=== PATIENT | female | born 1935 | race Caucasian/White ===

== ENCOUNTER 2017-10-19 14:33 | Outpatient (CLI) | payer OTHER | END 2017-10-19 15:00 | disposition home or self-care (01) | LOC: MAMO-SONO 14:33 | DX: Z12.31 Encounter for screening mammogram for malignant neoplasm of breast (principal); Z87.898 Personal history of other specified conditions ==

== ENCOUNTER → 2018-06-15 | Outpatient (CLI) | payer OTHER | END | disposition home or self-care (01) | LOC: MAMO-SONO 11:55 | DX: N64.4 Mastodynia (principal) ==

== ENCOUNTER 2022-05-12 14:35 | Emergency (ER) | payer OTHER ==
[~2022-05-12] VITALS: Ht 152.4 cm; Wt 61.2 kg
[2022-05-12] MEDS ORDERED: ATORVASTATIN CA40 MG PO (14:53)
[2022-05-12] MEDS ORDERED: NORVASC5 MG PO (14:54)
[2022-05-12] MEDS ORDERED: AVAPRO75 MG PO (14:54)
[2022-05-12] MEDS ORDERED: VITAMIN B-1100 M1 PO (14:55)
== END 2022-05-12 20:01 | disposition home or self-care (01) ==
LOC: ER 14:35
DX: S01.82XA Laceration with foreign body of other part of head, initial encounter (principal); W18.30XA Fall on same level, unspecified, initial encounter; Y93.01 Activity, walking, marching and hiking; Y92.520 Airport as the place of occurrence of the external cause